=== PATIENT | female | born 1955 ===

== ENCOUNTER 2021-01-22 00:20 | Emergency (ER) | payer MEDICARE ==
[~2021-01-22] VITALS: Ht 160 cm; Wt 63.5 kg
--- NOTE | 2021-01-22 00:45 | NUR ---
Dr. Cox at bedside for MSE.
--- NOTE | 2021-01-22 00:56 | NUR ---
Pt out of ER for CT.
[2021-01-22] MEDS ORDERED: ALBUTEROL SULFATE 2.5 MG/3 ML NEBU NEB ONE (01:00)
--- NOTE | 2021-01-22 01:05 | NUR ---
Pt back to ER from CT.
[2021-01-22] MEDS ORDERED: ALBUTEROL SULFATE 2.5 MG/3 ML NEBU ONE (01:10)
[2021-01-22] MEDS ORDERED: PRED50TA PO (01:50)
[2021-01-22] MEDS ORDERED: AMOX-430 PO (01:50)
[2021-01-22] MEDS ORDERED: ALBU6.7H9 INH (01:50)
[2021-01-22] MEDS ORDERED: FLUT16SP16 NS (01:50)
[2021-01-22] MEDS ORDERED: OXYM15MI4 NS (01:50)
[2021-01-22] MEDS ORDERED: AMOX500T2 PO (01:50)
--- NOTE | 2021-01-22 02:07 | NUR ---
Discharged to home with family member has all personell belongings,written instructions,prescriptions,able to verbalize plan of care.
[2021-01-22 02:14] VITALS: BP 112/78
== END 2021-01-22 02:15 | disposition home or self-care (01) ==
LOC: ER 00:27
DX: J32.2 Chronic ethmoidal sinusitis (principal); J98.01 Acute bronchospasm
CPT/HCPCS: 70486; 94640; A4663

== ENCOUNTER 2022-07-15 00:44 | Emergency (ER) | payer MEDICARE ==
[~2022-07-15] VITALS: Ht 160 cm; Wt 64.0 kg
[~2022-07-15 00:44] MED LIST: ALBU6.7H9 INH; AMOX-430 PO; AMOX500T2 PO; FLUT16SP16 NS; OXYM15MI4 NS; PRED50TA PO
[2022-07-15] MEDS ORDERED: IPRATROPIUM BROMIDE 0.5 MG/2.5 ML NEBU NEB ONE (01:30)
[2022-07-15] MEDS ORDERED: ALBUTEROL SULFATE 2.5 MG/3 ML NEBU NEB ONE (01:30)
[2022-07-15] MEDS ORDERED: ALBUTEROL SULFATE 2.5 MG/3 ML NEBU ONE (01:39)
[2022-07-15] MEDS ORDERED: IPRATROPIUM BROMIDE 0.5 MG/2.5 ML NEBU ONE (01:39)
[2022-07-15 01:49] LABS: HEMATOCRIT 39.7 % (31.2-41.9); MEAN CORPUSCULAR HEMOGLOBIN 31.2 uug (24.7-32.8); MEAN CORPUSCULAR VOLUME 93.1 fL (75.5-95.3); PLATELET COUNT (AUTO) 253 K/uL (179-408)
[2022-07-15 02:33] LABS: CREATININE 0.8 mg/dL (0.6-1.3); POTASSIUM 4.2 mmol/L (3.5-5.1)
[2022-07-15] MEDS ORDERED: AMOX500T2 PO (03:25)
[2022-07-15] MEDS ORDERED: ALBU6.7H9 INH (03:25)
[2022-07-15] MEDS ORDERED: FLUT16SP16 BNOSTRILS (03:25)
[2022-07-15] MEDS ORDERED: AMOX-430 PO (03:25)
[2022-07-15] MEDS ORDERED: OXYM15MI4 NS (03:25)
[2022-07-15] MEDS ORDERED: FLUT10.62 INH (03:25)
[2022-07-15] MEDS ORDERED: PRED50TA PO (03:25)
[2022-07-15] MEDS ORDERED: PSEU120T57 PO (03:25)
[2022-07-15 03:56] VITALS: BP 138/89
== END 2022-07-15 03:56 | disposition home or self-care (01) ==
LOC: ER 00:44
DX: J45.902 Unspecified asthma with status asthmaticus (principal); J32.9 Chronic sinusitis, unspecified; R07.89 Other chest pain; K21.9 Gastro-esophageal reflux disease without esophagitis; Z79.899 Other long term (current) drug therapy; Z79.2 Long term (current) use of antibiotics; Z20.822 Contact with and (suspected) exposure to COVID-19
CPT/HCPCS: 36415; 71045; 83735; 85025; A4663; J3590

== ENCOUNTER 2023-02-15 15:30 | Emergency (ER) | payer MEDICARE ==
[~2023-02-15] VITALS: Ht 160 cm; Wt 64.9 kg
[~2023-02-15 15:30] MED LIST changes: +FLUT10.62 INH; +FLUT16SP16 BNOSTRILS; +PSEU120T57 PO
[2023-02-15] MEDS ORDERED: OMEP20CA15 PO (15:56)
[2023-02-15] MEDS ORDERED: IPRATROPIUM BROMIDE 0.5 MG/2.5 ML NEBU NEB ONE (16:00)
[2023-02-15] MEDS ORDERED: predniSONE 10 MG TABLET PO ONE (16:00)
[2023-02-15] MEDS ORDERED: ALBUTEROL SULFATE 2.5 MG/3 ML NEBU NEB ONE (16:00)
[2023-02-15] MEDS ORDERED: predniSONE 20 MG TABLET ONE (16:04)
[2023-02-15] MEDS ORDERED: MOME17SP BNOSTRILS (16:10)
[2023-02-15] MEDS ORDERED: LORA10CA PO (16:10)
[2023-02-15] MEDS ORDERED: GUAI-671 PO (16:10)
[2023-02-15] MEDS ORDERED: PRED50TA PO (16:10)
[2023-02-15] MEDS ORDERED: ALBU8.5H8 INH (16:10)
[2023-02-15] MEDS ORDERED: ALBUTEROL SULFATE 2.5 MG/3 ML NEBU ONE (16:11)
[2023-02-15] MEDS ORDERED: IPRATROPIUM BROMIDE 0.5 MG/2.5 ML NEBU ONE (16:11)
[2023-02-15 16:25] VITALS: O2SAT 94; O2SAT 98
[2023-02-15 16:49] VITALS: O2SAT 98
== END 2023-02-15 16:57 | disposition home or self-care (01) ==
LOC: ER 15:40
DX: J45.909 Unspecified asthma, uncomplicated (principal); J32.9 Chronic sinusitis, unspecified; K21.9 Gastro-esophageal reflux disease without esophagitis; Z79.2 Long term (current) use of antibiotics; Z79.899 Other long term (current) drug therapy
CPT/HCPCS: 99283; J7512; A4606; A4663; J3590

== ENCOUNTER 2023-04-06 14:34 | Emergency (ER) | payer MEDICARE, OTHER ==
[~2023-04-06] VITALS: Ht 160 cm; Wt 64.9 kg
[~2023-04-06 14:34] MED LIST changes: +ALBU8.5H8 INH; +GUAI-671 PO; +LORA10CA PO; +MOME17SP BNOSTRILS; +OMEP20CA15 PO
[2023-04-06 15:39] VITALS: O2SAT 96
== END 2023-04-06 19:55 | disposition left against medical advice (07) ==
LOC: ER 14:45
DX: Z53.21 Procedure and treatment not carried out due to patient leaving prior to being seen by health care provider (principal); J45.909 Unspecified asthma, uncomplicated; K21.9 Gastro-esophageal reflux disease without esophagitis; Z79.899 Other long term (current) drug therapy; Z79.2 Long term (current) use of antibiotics
CPT/HCPCS: A4606; A4663

== ENCOUNTER 2025-02-20 00:33 | Emergency (ER) | payer MEDICARE, OTHER ==
[~2025-02-20] VITALS: Ht 157.5 cm; Wt 60.3 kg
[2025-02-20 00:36] VITALS: BP 156/87
[2025-02-20] MEDS ORDERED: ACETAMINOPHEN 500 MG TABLET ONE (01:29)
[2025-02-20] MEDS ORDERED: AMOXICILLIN-CLAVUL 875-125MG TABLET ONE (01:29)
[2025-02-20] MEDS ORDERED: HYDROCODONE/APAP 5-325MG TABLET ONE (01:30)
[2025-02-20] MEDS: AMOXICILLIN-CLAVUL 875-125MG TABLET PO ONE (01:32)
[2025-02-20] MEDS: ACETAMINOPHEN 500 MG TABLET PO ONE (01:32)
[2025-02-20] MEDS: HYDROCODONE/APAP 5-325MG TABLET PO ONE (01:32)
[2025-02-20] MEDS ORDERED: HYDR-3972 PO (01:35)
[2025-02-20] MEDS ORDERED: AMOX-430 PO (01:35)
[2025-02-20] MEDS ORDERED: DEXAMETHASONE SOD PHOSPHATE 4 MG INJ ONE (01:42)
[2025-02-20] MEDS: DEXAMETHASONE SOD PHOSPHATE 4 MG INJ IM ONE (01:43)
[2025-02-20 02:44] VITALS: BP 156/87; TEMP 98; O2SAT 99
== END 2025-02-20 02:45 | disposition home or self-care (01) ==
LOC: ER 00:46
DX: J32.9 Chronic sinusitis, unspecified (principal); J45.909 Unspecified asthma, uncomplicated; Z79.51 Long term (current) use of inhaled steroids; Z79.52 Long term (current) use of systemic steroids; Z79.899 Other long term (current) drug therapy; Z88.7 Allergy status to serum and vaccine
CPT/HCPCS: 99284; 96372; J1100; A4606; A4663; A9150